=== PATIENT | female | born 1975 | race African-American/Black ===

== ENCOUNTER 2019-12-15 19:46 | Inpatient (IN) | payer OTHER ==
[~2019-12-15] VITALS: Ht 172.7 cm; Wt 113.4 kg
[2019-12-15 19:48] VITALS: BP 93/50
[2019-12-15] MEDS ORDERED: HYDROCHLOROTHIA25 M2 PO (20:05)
[2019-12-15] MEDS ORDERED: NIFEDIPINE ER30 M1 PO (20:06)
[2019-12-15] MEDS ORDERED: LISINOPRIL2.5 MG PO (20:06)
[2019-12-15] MEDS ORDERED: XARELTO20 MG PO (20:07)
[2019-12-15] MEDS ORDERED: METHOCARBAMOL500 M2 PO (20:08)
[2019-12-15 20:30] LABS: BASOPHILS 0.5 % (0.0-2.0); EOSINOPHILS 1.1 % (0.0-3.0); HEMATOCRIT 45.5 % (37.0-47.0); HEMOGLOBIN 15.6 gm/dL (12.0-15.0); LYMPHOCYTES 29.6 % (24.0-44.0); MCH 31.1 pg (26.0-34.0); MCHC 34.3 g/dL (28.0-37.0); MCV 90.7 fL (80.0-100.0); MONOCYTES 9.5 % (1.0-8.0); PLATELET COUNT 389 thou/uL (150-400); POLYS 59.3 % (36.0-66.0); RBC 5.01 mil/uL (4.20-5.00); WBC 6.8 thou/uL (4.0-11.0)
[2019-12-15 20:59] LABS: ANION GAP 13 mmol/L (7-16); BUN 17 mg/dL (7-18); CALCIUM 9.2 mg/dL (8.5-10.1); CHLORIDE 87 mmol/L (98-107); CO2 20 mmol/L (21-32); CREATININE 1.7 mg/dL (0.6-1.0); GLUCOSE 159 mg/dL (74-106); POTASSIUM 4.6 mmol/L (3.5-5.1); SGOT 40 U/L (15-37); SODIUM 120 mmol/L (136-145)
[2019-12-15 21:00] LABS: ALBUMIN 3.7 g/dL (3.4-5.0); SGPT 20 U/L (14-59); TROPONIN-I <0.06 ng/mL (<0.06)
[2019-12-15 21:55] VITALS: BP 120/74
[2019-12-15 21:56] VITALS: BP 101/56
--- NOTE | 2019-12-15 21:58 | NUR ---
CALL TO GIVE REPORT, CYNTHIA TORIBIO SAID SHE WILL CALL BACK, HAD TO TRANSFER A PT FIRST
[2019-12-15 22:32] VITALS: BP 118/57
--- NOTE | 2019-12-16 07:31 | EKG ---
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: MACARENA : 1975 Requested By: Eric Oneill Order Number: [id number] MD: Dave Yanes Measurements Intervals [place] Rate: 96 P: 50 MO: 145 QRS: 61 QRSD: 90 T: 3 QT: 393 QTc: 497 Interpretive Statements Sinus rhythm LAE, consider biatrial enlargement RSR' in V1 or V2, probably normal variant Minimal ST depression, inferior leads Borderline prolonged QT interval No previous ECG available for comparison Electronically Signed On 12-16-2019 7:31:44 TRAIN GATE ATTENDANT by Dave Yanes [email or web address] <ELECTRONICALLY SIGNED> By: Dave Yanes MD, FACC 12/16/19 0731 20 20 Dave Yanes MD, [facility] /EPI
[2019-12-16 07:45] VITALS: BP 150/84
--- NOTE | 2019-12-16 08:17 | NUR ---
admit pt admitted to room 455 via ed for syncope, hypoglycemia and hyponatremia. vss, ivf's infusing as ordered no c/o's until she began vomiting at shift change 4 mg zofran given ivp with little effect. pt voiding large amounts and having large amounts of liquid stool.
[2019-12-16 15:50] VITALS: BP 154/85
--- NOTE | 2019-12-16 19:29 | NUR ---
ASSUMED PT CARE THIS AM. PT A&OX4. PT STARTED VOMITING AT SHIFT CHANGE THIS AM. GIVEN ZOFRAN, VOMITED 7 TIMES AFTER. PT HAD NO DIARRHEA DURING MY SHIFT. PT REPORTED PAIN IN THE UPPER ABDOMEN, MANAGED WITH MEDICATION. PT REPORTED DECREASED NAUSEA AFTER VOMITING THIS AM, DECLINED NEEDING ANY NAUSEA MEDS. IV PATENT. PT UP TO BEDSIDE COMMODE. PT ON TELE. PT DID NOT HAVE MUCH OF AN APPETITE TODAY. ENDORSED TO NIGHT NURSE.
[2019-12-16 20:42] VITALS: BP 129/74
--- NOTE | 2019-12-17 04:13 | NUR ---
ASSUMED CARE OF PT AT 1900HRS. PT AOX4 AND LETS NEEDS BE KNOWN. PT IS UP AD JENAE. PT REPORTED ABDOMINAL PAIN AND WAS TREATED WITH PRN PAIN MEDS. NO N/V/D NOTED THIS SHIFT. PT PLACED NPO AT TN FOR EGD IN THE AM. PT RUNS ST ON TELE. PT WAS ABLE TO FET COMFORTABLE AND SLEEP PART OF THE SHIFT. VSS AND NO S/S OF ACUTE DISTRESS. WILL CONTINUE TO MONITOR.
[2019-12-17 06:02] LABS: HEMATOCRIT 41.8 % (37.0-47.0); HEMOGLOBIN 13.9 gm/dL (12.0-15.0); MCH 30.9 pg (26.0-34.0); MCHC 33.3 g/dL (28.0-37.0); RBC 4.49 mil/uL (4.20-5.00); RDW 13.6 % (10.5-14.5); WBC 7.4 thou/uL (4.0-11.0)
[2019-12-17 06:36] LABS: URINE BILIRUBIN NEGATIVE (Negative); URINE BLOOD 2+ (Negative); URINE COLOR YELLOW; URINE GLUCOSE-RANDOM* TRACE (Negative); URINE KETONES TRACE (Negative); URINE NITRITE-REFLEX NEGATIVE (Negative); URINE PROTEIN (DIPSTICK) NEGATIVE (Negative); URINE UROBILINOGEN 0.2 E.U./dl (0.2-1.0)
[2019-12-17 06:37] LABS: URINE LEUKOCYTES-REFLEX 3+ (Negative)
[2019-12-17 06:38] LABS: URINE CLARITY HAZY
[2019-12-17 06:49] LABS: AMP/METHAMP Negative (Negative); BARBITURATES Negative (Negative); BENZODIAZEPINES Negative (Negative); COCAINE Negative (Negative); METHADONE Negative (Negative); OPIATES Negative (Negative); PCP Negative (Negative)
[2019-12-17 07:24] LABS: CASTS None Seen /LPF (None Seen); SQUAMOUS >10 Many /LPF (0-3)
[2019-12-17 07:25] LABS: BACTERIA-REFLEX >30 Many /HPF (None Seen); CRYSTALS None Seen /LPF (None Seen); URINE RBC 0-2 Rare /HPF (0-2); WBC CLUMPS Occasional (None Seen)
[2019-12-17 07:32] VITALS: BP 153/64
[2019-12-17 08:56] LABS: ALBUMIN 3.3 g/dL (3.4-5.0); CALCIUM 8.8 mg/dL (8.5-10.1); CREATININE 1.1 mg/dL (0.6-1.0); POTASSIUM 3.3 mmol/L (3.5-5.1); TOTAL BILIRUBIN 1.2 mg/dL (0.2-1.0); TOTAL PROTEIN 6.8 g/dL (6.4-8.2)
--- NOTE | 2019-12-17 10:59 | NUR ---
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 THIS IS AN EXPECTION GRANTED OUTSIDE OF THE VISITOR POLICY AT THIS TIME.
--- NOTE | 2019-12-17 12:04 | NUR ---
PT ADMITTED RELATED TO SYNCOPE, HYPONATREMIA, HYPOGLYCEMIA. CM REVIEWED CHART AND SPOKE WITH CARE TEAM. CM CALLED AND SPOKE WITH PT OVER THE PHONE THIS DAY. PT APPEARED TO BE A&O X4. CM ROLE INTRODUCED. PT INDICATED SHE LIVES IN A HOUSE WITH HER SPOUSE AND KIDS. 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 PT INDICATED NO DME OR HH HX. PT INDICATED SHE PLANS TO RETURN HOME ONCE MEDICALLY STABLE. PT INDICATED SHE DIDN'T ANTICIPATE HAVING ANY NEEDS UPON DC. PT IS TO HAVE AN EGD THIS DAY. CM TO FOLLOW WITH DC PLANNING.
--- NOTE | 2019-12-17 15:17 | 2DMMODE ---
[facility] [place] [address] 2 D/M-MODE ECHOCARDIOGRAM Name: ANGELES ONEILL Room #: 455-P ADM IN M.R.#: [id number] Admission: 12/15/19 Attend Phys: Tiara Nick Discharge: Date of : 73 Report #: [id number] THIS REPORT FOR: cc: Carlos Velasquez Brady DO Lammoglia, Francisco J. MD ~ APPROVED REPORT Study performed: 12/17/2019 14:28:38 EXAM: Comprehensive 2D, Doppler, and color-flow Echocardiogram Patient Location: Bedside Room #: [facility] Status: routine BSA: 2.25 HR: 95 bpm BP: 153/64 mmHg Rhythm: NSR Other Information Study Quality: Adequate Technically limited study due to unable to position. Indications Dyspnea on exertion. 2D Dimensions RVDd: 27.15 mm IVSd: 12.71 (7-11mm) LVOT Diam: 21.70 (18-24mm) LVDd: 41.02 mm PWd: 9.18 (7-11mm) LVDs: 27.57 (25-40mm) Aortic Root: 36.71 mm Volumes Left Atrial Volume (Systole) Single Plane 4CH: 18.12 mL Single Plane 2CH: 40.71 mL LA ESV Index: 14.00 mL/m2 Aortic Valve AoV Peak Jose Elias.: 1.34 m/s AO Peak Gr.: 7.23 mmHg LVOT Max P.60 mmHg LVOT Max V: 1.18 m/s [facility] [address] [address] 2 D/M-MODE ECHOCARDIOGRAM Name: ANGELES ONEILL Room #: 455-P [facility] IN ..#: [id number] Admission: 12/15/19 Attend Phys: Tiara Francisco Discharge: Date of : 73 Report #: [id number] [id number] Vmax: 3.25 cm2 Mitral Valve E/A Ratio: 0.8 MV Decel. Time: 203.57 ms MV E Max Jose Elias.: 0.77 m/s MV A Jose Elias.: 0.99 m/s MV PHT: 59.04 ms IVRT: 55.36 ms Pulmonary Valve PV Peak Jose Elias.: 1.14 m/s PV Peak Gr.: 5.17 mmHg Pulmonary Vein P Vein S: 0.52 m/s P Vein A: 0.33 m/s P Vein D: 0.35 m/s P Vein A Dur.: 121.1 msec P Vein S/D Ratio: 1.49 Tricuspid Valve RAP Estimate: 5.00 mmHg Left Ventricle The left ventricle is normal size. Mild basal septal hypertrophy is present. Left ventricular systolic function is normal. LVEF is 60-65%. Mild diastolic dysfunction is present (impaired relaxation pattern). Right Ventricle The right ventricle is normal size. The right ventricular systolic function is normal. Atria The left atrium size is normal. The right atrium size is normal. Aortic Valve The aortic valve is normal in structure. No aortic regurgitation is present. There is no aortic valvular stenosis. Mitral Valve The mitral valve is normal in structure. There is no mitral valve regurgitation noted. No evidence of mitral valve stenosis. Tricuspid Valve The tricuspid valve is normal in structure. There is no tricuspid valve regurgitation noted. Unable to assess PA pressure. [facility] [address] [place] [address] 2 D/M-MODE ECHOCARDIOGRAM Name: ANGELES ONEILL Room #: 455-P [facility] IN ..#: [id number] Admission: 12/15/19 Attend Phys: Tiara Francisco Discharge: Date of : 73 Report #: [id number] Pulmonic Valve Pulmonic valve is not well visualized. Trace pulmonic regurgitation. Great Vessels The aortic root is normal in size. The ascending aorta is normal in size. IVC is normal in size and collapses >50% with inspiration. Pericardium There is no pericardial effusion. <Conclusion> The left ventricle is normal size. LVEF is 60-65%. The aortic valve is normal in structure. The mitral valve is normal in structure. The tricuspid valve is normal in structure. Pulmonic valve is not well visualized. Trace pulmonic regurgitation. There is no pericardial effusion. <ELECTRONICALLY SIGNED> By: Dandy Bettencourt MD 12/17/19 1516 15 15 Dandy Bettencourt MD /INF
--- NOTE | 2019-12-17 17:49 | NUR ---
ASSUMED PT CARE THIS AM. PT A&OX4. PT WENT DOWN FOR AN EGD TODAY. PT NPO THIS AM, COMPLAINED OF PAIN MANAGED WITH MEDS. WENT DOWN FOR EGD, VITALS TAKEN PER PROTOCOL FOLLOWING. PT HAD ELEVATED BP, MEDS GIVEN PER . PT REPORTED NAUSEA AFTER EGD, MEDS GIVEN AND RESPONDED WELL. PT IV PATENT, FLUIDS INFUSING. WHEN GIVING IV POTASSIUM, PT COMPLAINED OF BURNING SENSATION IN HAND. PT TOOK A SHOWER WITH HELP FROM . PT ON TELE WAS SINUS TACH. PT ON CLEAR LIQUID DIET NOW, TOLERATING WELL.
[2019-12-17 19:58] VITALS: BP 104/55
--- NOTE | 2019-12-18 02:28 | NUR ---
ASSUMED CARE OF PT AROUND 1900HRS. PT ATX4 AND LETS NEEDS BE KNOWN. FALL PRECATION IN PLACE FOR SAEFTY. PT DENIED NAUSEA OR SOA THIS SHIFT. PT REPORTED SOME PAIN AND WAS TREATED WITH PRN PAIN MEDS. PT RUNS SR ON TELE. PT WAS ABLE TO GET COMFORTABLE AND SLEEP PART OF THE SHIFT. VSS AND NO S/S OF ACUTE DISTRESS. WILL CONTINUE TO MONITOR.
[2019-12-18 07:49] LABS: ALBUMIN 2.9 g/dL (3.4-5.0); CALCIUM 8.2 mg/dL (8.5-10.1); CREATININE 0.8 mg/dL (0.6-1.0); PHOSPHORUS 1.8 mg/dL (2.5-4.9); POTASSIUM 3.1 mmol/L (3.5-5.1)
[2019-12-18 08:45] VITALS: BP 132/69
[2019-12-18 08:47] VITALS: BP 127/69
[2019-12-18 08:48] VITALS: BP 123/76
[2019-12-18] MEDS ORDERED: PROTONIX 20 MG20 MG PO (10:45)
--- NOTE | 2019-12-18 10:56 | NUR ---
CARE TEAM INDICATED THAT PT IS MEDICALLY STABLE TO DISCHARGE HOME THIS DAY. PT IS TO DC HOME TO SELF CARE. NO OTHER CM INTERVENTION INIDCATED. CASE CLOSED.
--- NOTE | 2019-12-18 11:06 | NUR ---
ASSUMED CARES AT 0700. PT AWAKE, ALERT AND ORIENTED*4. C/O EPIGASTRIC AND ABDOMINAL DISCOMFORT AND PAIN, PAIN MEDICATION ADMINISTERED NEEDED. PT DENIES N&V THIS SHIFT, REMAINS ON FULL LIQUID DIET AND TOLERATES WELL. ORTHOSTATIC BP TAKEN THIS AM WERE STABLE, PT DENIES DIZZINESS. POTASSIUM CORRECTED. PT UP WITH SBA AND TOLERATED WELL. PT TO DC THIS AFTERNOON, DC INSTRUCTIONS AND TEACHING TO BE PROVIDED BEFORE DC. Q1H VISUAL CHECKS. CALL LIGHT WITHIN REACH. FALL PRECAUTIONS IN PLACE.
[2019-12-18 11:13] VITALS: BP 132/69
[2019-12-19 16:59] LABS: GLYCOHEMOGLOBIN (HGB A1C) 8.8
--- NOTE | 2019-12-19 17:06 | PATH ---
[facility] [address] [place] [address] PATHOLOGY RPT PROCEDURE Name: ANGELES ONEILL Room #: 455-P DIS IN M.R.#: [id number] Admission: 12/15/19 Date of : 73 Discharge: 12/18/19 Report #: [id number] Path Case #: [id number] [facility] Accession Number: [id number] . 01 Material submitted: . stomach - ANTRUM BIOPSY R/O H. PYLORI . 01 Clinical history: . SYNCOPE, LOW NA, LOW GLUCOSE, GI BLEED, N/V, ESOPHAGITIS . 02 Diagnosis: Gastric mucosa, antrum, endoscopic biopsy: - Helicobacter pylori induced moderate active gastritis. - Negative for intestinal metaplasia, atrophy or dysplasia. - Moderate number of Helicobacter pylori organisms present on the properly controlled immunohistochemical stain. (IUV:phil; 12/19/2019) QMS 12/19/2019 1144 Local . 02 Electronically signed: . Gabriela Meng MD, Pathologist NPI- [id number] . 01 Gross description: . Received in formalin labeled "[place], [place], antrum BX" are two morales-brown soft tissue fragments measuring in aggregate 0.5 x 0.5 x 0.1 cm. The specimen is submitted entirely in A1. ([facility]; 12/18/2019) [facility] 12/18/2019 1608 Local . 02 Pathologist provided ICD-10: K29.70, B96.81 . 02 CPT . 156644, W76152 Specimen Comment: A courtesy copy of this report has been sent to [phone], [phone] Specimen Comment: [phone], Specimen Comment: Report sent to ,DR BLACK / DR RDZ Performed at: [address], [place] [id number] MD Conrado Florian MD Phone: [phone] Performed at: [address] [id number] MD Gabriela Meng MD Phone: [phone]
== END 2019-12-18 13:30 | disposition home or self-care (01) | DRG 377 ==
LOC: ER 19:46 → 4W 21:34 → EROBS 21:34 → 4W 22:31
PROVIDERS: Emergency Medicine; Nurse Practitioner Family; ADMIT Hospitalist; ATTEND Hospitalist
PROC: 0DB68ZX Excision of Stomach, Via Natural or Artificial Opening Endoscopic, Diagnostic (ICD-10-PCS; principal; 2019-12-17)
DX: K29.71 Gastritis, unspecified, with bleeding (principal); G93.41 Metabolic encephalopathy; N17.9 Acute kidney failure, unspecified; E87.1 Hypo-osmolality and hyponatremia; M62.82 Rhabdomyolysis; I10 Essential (primary) hypertension; K20.91 Esophagitis, unspecified with bleeding; K29.81 Duodenitis with bleeding; N18.9 Chronic kidney disease, unspecified; F17.210 Nicotine dependence, cigarettes, uncomplicated; E11.22 Type 2 diabetes mellitus with diabetic chronic kidney disease; E11.65 Type 2 diabetes mellitus with hyperglycemia; K21.9 Gastro-esophageal reflux disease without esophagitis; E86.0 Dehydration; K52.9 Noninfective gastroenteritis and colitis, unspecified; E87.6 Hypokalemia; K44.9 Diaphragmatic hernia without obstruction or gangrene; Z20.828 Contact with and (suspected) exposure to other viral communicable diseases; Z86.711 Personal history of pulmonary embolism; Z09 Encounter for follow-up examination after completed treatment for conditions other than malignant neoplasm; Z86.718 Personal history of other venous thrombosis and embolism; Z79.899 Other long term (current) drug therapy
CPT/HCPCS: 10045; 62110; 62900; 70005

== ENCOUNTER 2020-05-18 10:04 | Inpatient (IN) | payer OTHER ==
[~2020-05-18] VITALS: Ht 172.7 cm; Wt 105.7 kg
[~2020-05-18 10:04] MED LIST: HYDROCHLOROTHIA25 M2 PO; LISINOPRIL2.5 MG PO; METHOCARBAMOL500 M2 PO; NIFEDIPINE ER30 M1 PO; PROTONIX 20 MG20 MG PO; XARELTO20 MG PO
[2020-05-18 10:05] VITALS: BP 130/107
[2020-05-18 10:27] LABS: URINE BILIRUBIN NEGATIVE (Negative); URINE BLOOD TRACE (Negative); URINE CLARITY CLEAR; URINE COLOR YELLOW; URINE GLUCOSE-RANDOM* 2+ (Negative); URINE KETONES TRACE (Negative); URINE LEUKOCYTES-REFLEX NEGATIVE (Negative); URINE NITRITE-REFLEX NEGATIVE (Negative); URINE PROTEIN (DIPSTICK) NEGATIVE (Negative); URINE UROBILINOGEN 0.2 E.U./dl (0.2-1.0)
[2020-05-18 10:30] LABS: ABSOLUTE NEUTROPHILS 6.3 thou/uL (1.4-8.2); BASOPHILS 0.8 % (0.0-2.0); HEMATOCRIT 46.8 % (37.0-47.0); HEMOGLOBIN 16.1 gm/dL (12.0-15.0); LYMPHOCYTES 22.9 % (24.0-44.0); MCH 31.7 pg (26.0-34.0); MCHC 34.4 g/dL (28.0-37.0); MCV 92.1 fL (80.0-100.0); MONOCYTES 4.9 % (1.0-8.0); PLATELET COUNT 455 thou/uL (150-400); POLYS 70.4 % (36.0-66.0); RBC 5.08 mil/uL (4.20-5.00); RDW 14.1 % (10.5-14.5)
[2020-05-18 10:36] LABS: ANION GAP 17 mmol/L (7-16); BUN 8 mg/dL (7-18); CALCIUM 9.3 mg/dL (8.5-10.1); CHLORIDE 103 mmol/L (98-107); CO2 18 mmol/L (21-32); CREATININE 0.8 mg/dL (0.6-1.0); GLUCOSE 257 mg/dL (74-106); POTASSIUM 3.6 mmol/L (3.5-5.1); SODIUM 138 mmol/L (136-145)
[2020-05-18] MEDS ORDERED: VICTOZA0.6 MG/0.1 SUBQ (10:41)
[2020-05-18] MEDS ORDERED: ZINC30 MG PO (10:41)
[2020-05-18 10:45] LABS: ALBUMIN 4.2 g/dL (3.4-5.0); SGOT 15 U/L (15-37); SGPT 23 U/L (14-59); TOTAL BILIRUBIN 0.6 mg/dL (0.2-1.0); TOTAL PROTEIN 8.8 g/dL (6.4-8.2); TROPONIN-I <0.06 ng/mL (<0.06)
[2020-05-18 11:45] VITALS: BP 147/81
[2020-05-18 11:57] VITALS: BP 147/81
[2020-05-18 12:15] LABS: AMP/METHAMP Negative (Negative); BARBITURATES Negative (Negative); BENZODIAZEPINES Negative (Negative); COCAINE Negative (Negative); METHADONE Negative (Negative); OPIATES Negative (Negative); PCP Negative (Negative)
[2020-05-18 12:17] VITALS: BP 150/83
--- NOTE | 2020-05-18 12:43 | EKG ---
[place] [address] [place] [address] ELECTROCARDIOGRAM REPORT Name: ANGELES ONEILL Room #: 209-P ADM IN M.R.#: [id number] Admission: 05/18/20 Attend Phys: Tiara Nick Discharge: Date of : 73 Report #: [id number] [facility] ED Test Date: 2020-05-18 Test Time: 10:04:50 Pat Name: ANGELES ONEILL Department: Room: 209 Gender: F Program Strategist: RAJ : 1975 Requested By: Dave Hilton Order Number: [id number] MD: Iván Hardy Measurements Intervals [place] Rate: 127 P: OR: QRS: 64 QRSD: 84 T: -37 QT: 335 QTc: 488 Interpretive Statements Atrial fibrillation RSR' in V1 or V2, probably normal variant Borderline repolarization abnormality Borderline prolonged QT interval Compared to ECG 12/15/2019 20:21:47 Sinus rhythm no longer present Electronically Signed On 05-18-2020 12:42:55 CDT by Iván Hardy [email or web address] <ELECTRONICALLY SIGNED> By: Iván Hardy MD, [facility] 05/18/20 1242 1004 1004 Iván Hardy MD, [facility] /EPI
--- NOTE | 2020-05-18 15:58 | EKG ---
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: RAJ : 1975 Requested By: Dave Hilton Order Number: [id number] MD: Dave Yanes Measurements Intervals [place] Rate: 80 P: 48 CA: 164 QRS: 52 QRSD: 98 T: 18 QT: 400 QTc: 462 Interpretive Statements Sinus rhythm Probable left atrial enlargement Borderline T wave abnormalities Compared to ECG 05/18/2020 10:04:50 T-wave abnormality now present Atrial fibrillation no longer present Electronically Signed On 05-18-2020 15:58:43 CDT by Dave Yanes [email or web address] <ELECTRONICALLY SIGNED> By: Dave Yanes MD, [facility] 05/18/20 1558 1025 1025 Dave Yanes MD, [facility] /EPI
--- NOTE | 2020-05-18 16:00 | NUR ---
PT TRANSFERED TO CCU FROM THE ED AT APPROX 1410. PT RESTING COMFORTABLY, DOES NOT COMPLAIN OF ANY CHEST PAIN OR DYSPNEA. NEW PIV WAS STARTED BY IV ACCESS TEAM. PT AFEBRILE, ADEQUATE UOP, NO BM, TOLERATING DIET. AT BEDSIDE. PT AND HAVE BEEN UPDATED AND EDUCATED ON PT CONDTION AND POC. PT SLOWLY PROGRESSING TOWARDS POC. NO EMESIS SINCE BEING ON CCU.
[2020-05-18 20:05] VITALS: BP 167/70
[2020-05-19] VITALS (9 sets, daily range): BP systolic 147–193; BP diastolic 78–94
--- NOTE | 2020-05-19 05:02 | NUR ---
2119 SPOKE WITH SHOSHANA TACO MAKER PAST PATIENT STATED HAD NOT TAKEN HOME MEDS. XAROLTO STARTED. 2244 COMPLAINTS OF NAUSEA AND SEVERE ABDOMAINAL PAIN LIKE WHY SHE CAME TO ER. MOROPHINE 2MG IVP AND ZOFRAN IVP GIVEN. 2314 UP TO COMODE AND HAD SOME DIARRHEA, NAUSEA AND VOMMITTING PAST UP TO COMODE. COOL CLOTH GIVEN FOR FACE. STAYED WITH PATIENT FOR REASSURANCE. 0030 PAIN AND NAUSEA HAD SUBSIDED. NO PRESENT COMPLAINTS. RESTING QUIETLY WITH EYES CLOSED. 0420 BP 183/89. NOTIFIED TACO MAKER AND AM NIFEDIPINE GIVEN. WORKING ON GOALS AND PLAN OF CARE FOR NOC. NO PRESENT COMPLAINTS. JELLO GIVEN PER REQUEST. CONTINUE TO ASSES CLOSELY.
[2020-05-19 05:11] LABS: ABSOLUTE NEUTROPHILS 12.1 thou/uL (1.4-8.2); BASOPHILS 0.7 % (0.0-2.0); HEMATOCRIT 48.3 % (37.0-47.0); HEMOGLOBIN 16.2 gm/dL (12.0-15.0); LYMPHOCYTES 6.8 % (24.0-44.0); MCH 31.1 pg (26.0-34.0); MCHC 33.5 g/dL (28.0-37.0); MCV 92.9 fL (80.0-100.0); MONOCYTES 2.3 % (1.0-8.0); POLYS 90.2 % (36.0-66.0); WBC 13.4 thou/uL (4.0-11.0)
[2020-05-19 05:18] LABS: ALBUMIN 4.3 g/dL (3.4-5.0); CALCIUM 9.7 mg/dL (8.5-10.1); CREATININE 0.8 mg/dL (0.6-1.0); MAGNESIUM 1.6 mg/dL (1.8-2.4); POTASSIUM 3.5 mmol/L (3.5-5.1); TOTAL BILIRUBIN 0.8 mg/dL (0.2-1.0)
[2020-05-19 05:24] LABS: PLATELET COUNT 368 thou/uL (150-400)
--- NOTE | 2020-05-19 17:22 | NUR ---
RECEIVED PT'S CARE AROUND 0720; PT. ON BED; ALERT; SR ON THE MONITOR; DURING AM ASSESSMENT PT. AXO4; NO C/O PAIN; ST. NOT HAVING NAUSEA AT THE MOMENT; AM MEDICATIONS GIVEN; DURING AM VS NOTICED BP ON THE 180s; DR. RDZ NOTIFIED; NO NEW ORDERS; PT. EDUCATED ABOUT HAVING LIGHT BREAKFAST; ST. UNDERSTANDING; EDUCATED ABOUT CALLING BEFORE GETTING UP FROM BED; ST. UNDERSTANDING; NEEDS TO BE REMAINED; IMPULSIVE; INSULIN REPLACED; GI CONSULTED; CLOSE TO NOON PT. ST ON THE MONITOR; PT. C/O DIZZINES; C/O NAUSEA; SCHEDULED MEDICATION GIVEN; EDUCATED ABOUT CALLING BEFORE GETTING UP FROM BED DUE TO DIZZINNESS; NEEDS REINFORCEMENT THROUGH THE AFTERNOON; REASSESSMENT PT. ST. DECREASE NAUSEA; HAD TWO EMESIS INCIDENTS; MANJIT LA GI DEVELOPMENT SCIENTIST DIET CHANGED TO CLEAR LIQUID; ORTHOSTATIC BP IN THE SYSTEM; DR. RDZ NOTIFIED; NO NEW ORDERS; DURING THE AFTERNOON PT'S BP ON THE 180s; DR. RDZ NOTIFIED; ORDERS RECEIVED; BG THROUGH THE DAY ON THE 200s; DR. RDZ NOTIFIED; ORDERS RECEIVED; PT. NOTIFIED; ST. UNDERSTANDING; ASSESSMENT CHARGED; FOLLOWING POC; WILL PASS ON REPORT;
--- NOTE | 2020-05-20 01:12 | NUR ---
COMPLAINTS OF SEVERE ABDOMANAL PAIN, NAUSEA AND NOT SLEEPING. MEDICATIONS GIVEN FOR COMFORT. NO VOMMITING AT THIS TIME.
[2020-05-20 05:22] VITALS: BP 163/94
[2020-05-20 05:35] LABS: HEMATOCRIT 48.7 % (37.0-47.0); HEMOGLOBIN 16.4 gm/dL (12.0-15.0); MCH 30.8 pg (26.0-34.0); MCHC 33.6 g/dL (28.0-37.0); MCV 91.6 fL (80.0-100.0); RBC 5.32 mil/uL (4.20-5.00); RDW 14.1 % (10.5-14.5); WBC 12.9 thou/uL (4.0-11.0)
[2020-05-20 06:12] LABS: ALBUMIN 3.8 g/dL (3.4-5.0); CALCIUM 9.3 mg/dL (8.5-10.1); CREATININE 0.8 mg/dL (0.6-1.0); MAGNESIUM 1.7 mg/dL (1.8-2.4); TOTAL BILIRUBIN 1.1 mg/dL (0.2-1.0); TOTAL PROTEIN 8.4 g/dL (6.4-8.2)
[2020-05-20 08:00] VITALS: BP 162/98
[2020-05-20 13:25] VITALS: BP 108/71
--- NOTE | 2020-05-20 13:27 | NUR ---
ASSUMED CARE SHIFT CHANGE. ASSESSMENT CHARTED.MEDS GIVEN. PT C/O PAIN PHYSICIAN NOTIFIED ORDERS RECEIVED. SPOUSE AT BEDSIDE. C/O NAUSEA TREATED WITH MEDS PER APR. PT UP WITH ASSIST TOLERATING FAIR. TX ORDERS MEDSURG. REPORT GIVEN TO SANTIAGO MARIE. PT TRANSFERRED TO W WITH ALL BELONGINGS
--- NOTE | 2020-05-20 14:03 | NUR ---
RECIEVED PATIENT FROM 2N AND REPORT FROM CYNTHIA YANG. UP TO BATHROOM WITH ASSISTING. STEADY GAIT. NO NAUSEA OR ABDOMINAL PAIN. STATES CAPSACIAN CREAM CAUSES A LITTLE BURNING SENSATION TO ADBOMEN BUT IS EFFECTIVE. NO OTHER COMPLAINTS OR CONCERNS AT THIS TIME
[2020-05-20 15:15] VITALS: BP 89/58
[2020-05-20 19:23] VITALS: BP 96/59
--- NOTE | 2020-05-21 06:40 | NUR ---
Pt. rested quietly at intervals during the night when checked on during frequent rounds. She offers no c/o pain or nausea.
[2020-05-21 07:24] VITALS: BP 95/51
[2020-05-21] MEDS ORDERED: AF CAPSICUM 0.060 GM TOP (09:26)
[2020-05-21] MEDS ORDERED: TRAMADOL 50 MG50 MG PO (09:26)
[2020-05-21] MEDS ORDERED: ONDANSETRON HCL4 M2 PO (09:27)
[2020-05-21 10:02] VITALS: BP 95/51
--- NOTE | 2020-05-21 12:18 | NUR ---
Received awake on bed. Due medications given as prescribed, able to swallow meds w/o difficulty. On room air. Vital signs stable. On MS, not on telemetry; no complains and signs of chest pain, crushing sensation and heaviness; recent diagnosis of Afib. On soft diet- tolerating well; no nausea, no vomiting and no abdominal pain noted. On blood sugar monitoring, taken and recorded accordingly; with sliding scale insulin ordered- given as prescribed. Continent of bowel and bladder, able to go to the toilet with standby assist. Falls bundle in place- recent syncope. With SL at R AC- intact. To continue monitoring patient. Patient seen and examined by Dr Park price am- discharge orders made- DELIA Lenz updated. Discharge instructions, follow up schedule given and instructed- pt acknowledged understanding. Discharge forms signed. IV discontinued. No telemetry noted. Pt fetched by her relative; brought out of the unit via wheelchair with her personal belongings. Pt discharged.
== END 2020-05-21 11:18 | disposition home or self-care (01) | DRG 73 ==
LOC: ER 10:04 → 2N 11:50 → EROBS 11:50 → 2N 12:17 → 4W 05-20 13:16
PROVIDERS: Emergency Medicine; Nurse Practitioner; ADMIT Hospitalist; ATTEND Hospitalist
DX: E11.43 Type 2 diabetes mellitus with diabetic autonomic (poly)neuropathy (principal); E43 Unspecified severe protein-calorie malnutrition; R65.10 Systemic inflammatory response syndrome (SIRS) of non-infectious origin without acute organ dysfunction; I10 Essential (primary) hypertension; I48.91 Unspecified atrial fibrillation; E78.5 Hyperlipidemia, unspecified; F12.90 Cannabis use, unspecified, uncomplicated; K20.90 Esophagitis, unspecified without bleeding; E66.9 Obesity, unspecified; I48.0 Paroxysmal atrial fibrillation; E11.65 Type 2 diabetes mellitus with hyperglycemia; K76.0 Fatty (change of) liver, not elsewhere classified; R59.9 Enlarged lymph nodes, unspecified; K31.84 Gastroparesis; K52.9 Noninfective gastroenteritis and colitis, unspecified; Z86.718 Personal history of other venous thrombosis and embolism; Z86.711 Personal history of pulmonary embolism; Z68.35 Body mass index [BMI] 35.0-35.9, adult
CPT/HCPCS: 10047; 10081

== ENCOUNTER 2020-08-13 11:22 | Emergency (ER) | payer OTHER ==
[~2020-08-13] VITALS: Ht 170.2 cm; Wt 104.3 kg
[~2020-08-13 11:22] MED LIST changes: +AF CAPSICUM 0.060 GM TOP; +ONDANSETRON HCL4 M2 PO; +TRAMADOL 50 MG50 MG PO; +VICTOZA0.6 MG/0.1 SUBQ; +ZINC30 MG PO
[2020-08-13] MEDS ORDERED: LISINOPRIL10 MG PO (11:34)
[2020-08-13 11:55] LABS: HEMOGLOBIN 13.4 gm/dL (12.0-15.0); MCH 30.8 pg (26.0-34.0); MCHC 33.3 g/dL (28.0-37.0); MCV 92.4 fL (80.0-100.0); RBC 4.33 mil/uL (4.20-5.00); RDW 13.8 % (10.5-14.5)
[2020-08-13 12:08] LABS: ANION GAP 11 mmol/L (7-16); BUN 4 mg/dL (7-18); CALCIUM 8.8 mg/dL (8.5-10.1); CHLORIDE 106 mmol/L (98-107); CO2 24 mmol/L (21-32); CREATININE 0.8 mg/dL (0.6-1.0); GLUCOSE 189 mg/dL (74-106); POTASSIUM 3.8 mmol/L (3.5-5.1); SODIUM 141 mmol/L (136-145)
[2020-08-13 12:17] LABS: URINE BILIRUBIN NEGATIVE (Negative); URINE BLOOD NEGATIVE (Negative); URINE CLARITY CLEAR; URINE COLOR YELLOW; URINE GLUCOSE-RANDOM* NEGATIVE (Negative); URINE KETONES NEGATIVE (Negative); URINE LEUKOCYTES-REFLEX NEGATIVE (Negative); URINE NITRITE-REFLEX NEGATIVE (Negative); URINE PROTEIN (DIPSTICK) NEGATIVE (Negative); URINE SPECIFIC GRAVITY 1.015 (1.005-1.035); URINE UROBILINOGEN 0.2 E.U./dl (0.2-1.0)
[2020-08-13 12:22] LABS: ALBUMIN 3.3 g/dL (3.4-5.0); SGOT 16 U/L (15-37); SGPT 20 U/L (14-59); TOTAL BILIRUBIN 0.7 mg/dL (0.2-1.0); TOTAL PROTEIN 7.2 g/dL (6.4-8.2); TROPONIN-I <0.06 ng/mL (<0.06)
[2020-08-13] MEDS ORDERED: NIFEDIPINE ER30 M1 PO (12:58)
[2020-08-13] MEDS ORDERED: LISINOPRIL2.5 MG PO (12:58)
[2020-08-13 13:55] VITALS: BP 120/72
--- NOTE | 2020-08-13 17:19 | EKG ---
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1975 Requested By: Shaina Card Order Number: [id number] MD: Dave Yanes Measurements Intervals [place] Rate: 80 P: 48 MN: 170 QRS: 50 QRSD: 94 T: 8 QT: 404 QTc: 466 Interpretive Statements Sinus rhythm RSR' in V1 or V2, right VCD or RVH Compared to ECG 05/18/2020 10:25:02 Right ventricular hypertrophy now present RSR' in V1 or V2 now present T-wave abnormality no longer present Electronically Signed On 08-13-2020 17:19:40 CDT by Dave Yanes [email or web address] <ELECTRONICALLY SIGNED> By: Dave Yanes MD, [facility] 08/13/20 1719 1133 1133 Dave Yanes MD, [facility] /EPI
--- NOTE | 2020-08-13 17:20 | EKG ---
[place] [address] [place] [address] ELECTROCARDIOGRAM REPORT Name: ANGELES ONEILL Room #: [facility]#: [id number] Admission: 08/13/20 Attend Phys: Discharge: 08/13/20 Date of : 73 Report #: [id number] [facility] ED Test Date: 2020-08-13 Test Time: 12:58:49 Pat Name: ANGELES ONEILL Department: Room: Gender: F Pay Clerk: USHA : 1975 Requested By: Shaina Card Order Number: [id number] MD: Dave Yanes Measurements Intervals [place] Rate: 73 P: 40 MO: 177 QRS: 44 QRSD: 105 T: 26 QT: 417 QTc: 460 Interpretive Statements Sinus rhythm RSR' in V1 or V2, right VCD or RVH Compared to ECG 08/13/2020 11:33:33 No significant changes Electronically Signed On 08-13-2020 17:19:53 CDT by Dave Yanes [email or web address] <ELECTRONICALLY SIGNED> By: Dave Yanes MD, [facility] 08/13/20 1719 D: [id number] Dave Yanes MD, [facility] /EPI
== END 2020-08-13 14:05 | disposition home or self-care (01) ==
LOC: ER 11:22
PROVIDERS: Nurse Practitioner Family
DX: I10 Essential (primary) hypertension (principal); R55 Syncope and collapse; E11.9 Type 2 diabetes mellitus without complications; Z86.711 Personal history of pulmonary embolism; R11.0 Nausea

== ENCOUNTER 2020-10-06 01:58 | Inpatient (IN) | payer BC, OTHER ==
[~2020-10-06] VITALS: Ht 170.2 cm; Wt 106.6 kg
--- NOTE | ~2020-10-06 | EMS ---
[address] [address] EMS Patient Care Report Name: ANGELES ONEILL Room #: 447-P ADM IN M.R.#: [id number] Admission: 10/06/20 Attend Phys: King Gotti MD Discharge: Date of : 73 Report #: [id number] THIS REPORT FOR: //name// Report Transmitted: 10/08/2020 10:50 EMS Care Summary [place], [place]/[facility] Incident [id number] @ 10/06/2020 01:24 Incident Location [address] [place] [address] Patient ANGELES ONEILL Female, 44 Years 1975 Patient Address [address] [place] [address] Patient History Diabetes,Hypertension (HTN), Patient Allergies No known allergies, Patient Medications Xarelto, Lisinopril, Victoza, Nifedipine, Chief Complaint Nausea and weakness Disposition Transported No Lights/[place] Dispatch Reason Diabetic Problem Transported To [facility] Narrative M42 arrived on scene to find the patient sitting upright on her bed. Patient said for the past 2-3 days she had been feeling sick to her stomach and had been throwing up. Patient said she had been very weakness as well. Patient [address] [address] EMS Patient Care Report Name: ANGELES ONEILL Room #: 447-P ADM IN Reginald#: [id number] Admission: 10/06/20 Attend Phys: King Gotti MD Discharge: Date of : 73 Report #: [id number] denied cough, shortness of breath, fever, or chest pain. Patient was placed on the cot and seat belts were used to secure the patient. En route to the hospital no changes in the patient condition occurred. M42 arrived on scene of the hospital and patient care was transferred to the RN. Initial Vitals @01:39P: 107,CO: 2,SpO2: 77, @01:45P: 106,R: 16,BP: 108/55,Pain: 0/10,GCS: 15,CO: 2,SpO2: 97,Revised Trauma: 12, @01:36P: 125,R: 16,BP: 129/86,Pain: 0/10,GCS: 15,Glucose: 300,SpO2: 98,Revised Trauma: 12, Assessments @01:32MENTAL:No Abnormalities,SKIN:No Abnormalities,HEENT:Head/Face: No Abnormalities,Eyes: No Abnormalities,Neck/Airway: No Abnormalities,LUNG SOUNDS:General: Nausea,ABDOMEN:General: Nausea,PELVIS//GI:No Abnormalities,EXTREMITIES:Left Arm: No Abnormalities,Right Arm: No Abnormalities,Left Leg: No Abnormalities,Right Leg: No Abnormalities,PULSE:NEURO:No Abnormalities,@01:42MENTAL:No Abnormalities,SKIN:No Abnormalities,HEENT:Head/Face: No Abnormalities,Eyes: No Abnormalities,Neck/Airway: No Abnormalities,LUNG SOUNDS:General: Nausea,ABDOMEN:General: Nausea,PELVIS//GI:No Abnormalities,EXTREMITIES:Left Arm: No Abnormalities,Right Arm: No Abnormalities,Left Leg: No Abnormalities,Right Leg: No Abnormalities,PULSE:NEURO:No Abnormalities, Impression Nausea Procedures @01:32ALS AssessmentResponse: UnchangedSucceeded Timeline 01:22,Call Received 01:22,Dispatch Notified 01:24,Dispatched 01:25,En Route 01:31,On Scene 01:32,At Patient 01:32,ALS Assessment,Response: UnchangedSucceeded, 01:36,BP: 129/86 M,PULSE: 125,RR: 16 R,SPO2: 98 Ox,ETCO2: ,B,PAIN: 0,GCS: 15, 01:39,BP: / M,PULSE: 107,RR: R,SPO2: 77 Ox,ETCO2: ,BG: ,PAIN: ,GCS: , 01:40,Depart Scene 01:45,BP: 108/55 M,PULSE: 106,RR: 16 R,SPO2: 97 Ox,ETCO2: ,BG: ,PAIN: 0,GCS: 15, 02:11,At Destination [address] [address] EMS Patient Care Report Name: NINOANGELES Room #: 447-P ADM IN M.R.#: [id number] Admission: 10/06/20 Attend Phys: King Gotti MD Discharge: Date of : 73 Report #: [id number] 02:12,Call Closed Disclaimer [email or web address] Copyright 2020 [employer] This EMS Care Summary contains data elements from the applicable legal record (which may be displayed differently). It is designed to provide pertinent information for the following purposes: continuity of care, clinical quality, and state data reporting. The complete legal record is available to ED staff and administrators of the receiving hospital in [employer]'s Patient Tracker. All data is provided "as is."
[~2020-10-06 01:58] MED LIST changes: +LISINOPRIL10 MG PO
[2020-10-06 02:06] VITALS: BP 150/96
[2020-10-06 03:23] LABS: ABSOLUTE NEUTROPHILS 11.3 thou/uL (1.4-8.2); BASOPHILS 0.9 % (0.0-2.0); EOSINOPHILS 0.1 % (0.0-3.0); HEMATOCRIT 44.8 % (37.0-47.0); HEMOGLOBIN 15.8 gm/dL (12.0-15.0); LYMPHOCYTES 13.9 % (24.0-44.0); MCH 32.1 pg (26.0-34.0); MCHC 35.2 g/dL (28.0-37.0); MCV 91.1 fL (80.0-100.0); MONOCYTES 5.1 % (1.0-8.0); PLATELET COUNT 435 thou/uL (150-400); RBC 4.91 mil/uL (4.20-5.00); RDW 13.6 % (10.5-14.5); WBC 14.1 thou/uL (4.0-11.0)
[2020-10-06 03:32] LABS: CALCIUM 9.5 mg/dL (8.5-10.1); CREATININE 0.8 mg/dL (0.6-1.0); POTASSIUM 4.3 mmol/L (3.5-5.1)
[2020-10-06 03:39] LABS: APTT 40.4 Seconds (24.5-32.8); INR 1.14; PROTIME 12.4 Seconds (10.5-12.1)
[2020-10-06 03:43] LABS: ALBUMIN 3.9 g/dL (3.4-5.0); TOTAL BILIRUBIN 1.2 mg/dL (0.2-1.0); TOTAL PROTEIN 8.7 g/dL (6.4-8.2)
[2020-10-06 03:53] LABS: URINE BILIRUBIN NEGATIVE (Negative); URINE BLOOD 2+ (Negative); URINE CLARITY CLEAR; URINE COLOR YELLOW; URINE GLUCOSE-RANDOM* 3+ (Negative); URINE KETONES 1+ (Negative); URINE LEUKOCYTES-REFLEX NEGATIVE (Negative); URINE NITRITE-REFLEX NEGATIVE (Negative); URINE PROTEIN (DIPSTICK) 3+ (Negative); URINE SPECIFIC GRAVITY 1.025 (1.005-1.035); URINE UROBILINOGEN 0.2 E.U./dl (0.2-1.0)
[2020-10-06 04:41] LABS: BACTERIA-REFLEX 1-9 Few /HPF (None Seen); CELLULAR CASTS 0-3 Few /LPF (None Seen); CRYSTALS None Seen /LPF (None Seen); HYALINE CASTS 0-3 Few /LPF (None Seen); MUCUS 4-6 Moderate strn/LPF (None Seen); SQUAMOUS 0-3 Few /LPF (0-3); URINE RBC 3-10 Few /HPF (NONE SEEN); URINE WBC-REFLEX 0-5 Rare /HPF (0-5)
--- NOTE | 2020-10-06 07:28 | EKG ---
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 : 1975 Requested By: Geremias Steven Order Number: [id number] MD: Dave Yanes Measurements Intervals [place] Rate: 101 P: 49 GA: 143 QRS: 47 QRSD: 104 T: 1 QT: 343 QTc: 445 Interpretive Statements Sinus tachycardia Abnormal R-wave progression, early transition Baseline wander in lead(s) II,III,aVF Compared to ECG 08/13/2020 12:58:49 Sinus rhythm no longer present Right ventricular hypertrophy no longer present Electronically Signed On 10-06-2020 7:27:52 CDT by Dave Yanes [email or web address] <ELECTRONICALLY SIGNED> By: Dave Yanes MD, [facility] 10/06/20 0727 1 1 Dave Yanes MD, [facility] /EPI
[2020-10-06 10:27] VITALS: BP 186/100
--- NOTE | 2020-10-06 11:37 | NUR ---
ASSUMED PT CARE AT 1055 FROM ED. PT IS ALERT & ORIENTED X4. PT HAS IV SITE ON L HAND SALINE LOCKED. PT IS ACCUCHECK ACHS AND ON CLEAR LIQUID DIET. NO C/O OF PAIN, NAUSEA AND VOMITING RIGHT NOW. PT IS ON ROOM AIR. WILL CONTINUE TO MONITOR PT. FOLLOW POC.
[2020-10-06 16:26] VITALS: BP 150/97
[2020-10-06 18:58] LABS: AMP/METHAMP Negative (Negative); BARBITURATES Negative (Negative); BENZODIAZEPINES Negative (Negative); COCAINE Negative (Negative); METHADONE Negative (Negative); OPIATES Negative (Negative); PCP Negative (Negative)
[2020-10-06 20:33] VITALS: BP 159/96
[2020-10-07 01:06] LABS: GLYCOHEMOGLOBIN (HGB A1C) 9.2 % (4.8-5.6)
[2020-10-07 06:15] LABS: HEMOGLOBIN 15.1 gm/dL (12.0-15.0); MCH 31.5 pg (26.0-34.0); MCHC 34.2 g/dL (28.0-37.0); MCV 91.9 fL (80.0-100.0); RBC 4.79 mil/uL (4.20-5.00); RDW 13.6 % (10.5-14.5); WBC 10.6 thou/uL (4.0-11.0)
[2020-10-07 06:26] LABS: CALCIUM 8.3 mg/dL (8.5-10.1); CREATININE 0.7 mg/dL (0.6-1.0); POTASSIUM 3.4 mmol/L (3.5-5.1)
[2020-10-07 08:09] VITALS: BP 149/110
--- NOTE | 2020-10-07 12:53 | NUR ---
ORDERS RECEIVED FOR PT EVAL AND TREAT. Pt ADMITTED W/ HYPONATREMIA AND ABD PAIN W/ N/V, COLITIS. Pt ON COMMODE UPON PT ARRIVAL. STOOD AND TOOK STEPS BACK TO BED INDEP. RN REPORTED Pt HAS BEEN UP AD JENAE. Pt DECLINING PT NEEDS AT THIS TIME STATING HER ISSUE IS JUST HER STOMACH/ABDOMEN. ACUTE PT TO SIGN OFF.
--- NOTE | 2020-10-07 13:14 | NUR ---
ASSUMED PT CARE THIS AM. PT IS ALERT & ORIENTED X4. PT HAS IV SITE ON L HAND RUNNING NS @126ML/HR. ADVANCE DIET TO FULL LIQUID PER GI. NO C/O OF NAUSEA AND VOMITING. PT C/O OF CONSTIPATION AND GIVEN MIRALAX AND BISACODYL PER PT REQUEST. PT IS UP AD JENAE. WILL CONTINUE TO MONITOR PT. FOLLOW POC.
--- NOTE | 2020-10-07 15:10 | NUR ---
ASSESSMENT: CM REVIEWED CHART AND SPOKE WITH PATIENT AT THE BEDSIDE. PT IS ALERT AND ORIENTED X4. PT LIVES IN A HOUSE WITH HER AND CHILDREN. PT WAS ADMITTED WITH LIKELY COLITIS AND ON IV ANBX. PT REPORTS SHE IS FULLY INDEPENDENT WITH ADLS AND AMBULATION. PT REPORTS NO HX OF HH OR SNF. PT REPORTS HAVING A PCP. CM DISCUSSED ROLE. PT DOES NOT ANTICIPATE HAVING ANY NEEDS FROM CM PRIOR TO DISCHARGE.
[2020-10-07 16:42] VITALS: BP 140/86
[2020-10-07 19:18] VITALS: BP 154/91
--- NOTE | 2020-10-08 02:49 | NUR ---
patient aox4 makes needs known. patient is up at alice. patient tolerated full liquids.patient denied pain or discomfort. no nausea or vomit this shift. patient in bed asleep at this time breathing regular and unlaboured.
[2020-10-08 07:36] VITALS: BP 156/106
--- NOTE | 2020-10-08 10:30 | NUR ---
ASSUMED PT CARE THIS AM. PT IS ALERT & ORIENTED X4. PT HAS IV SITE ON R FA RUNNING NS @126ML/HR. PT IS UP AD JENAE. PT IS ACCUCHECK ACHS. NEEDED STOOL SAMPLE AND STILL AWAITING FOR BM. PT IS ON ROOM AIR. NO C/O OF PAIN, NAUSEA AND VOMITING THIS AM. PT ON THE CHAIR WATCHING TV. WILL CONTINUE TO MONITOR PT. FOLLOW POC.
--- NOTE | 2020-10-08 12:13 | NUR ---
on-going assessment: CM REVIEWED CHART. PT IS UP AD JENAE IN HER ROOM. PT IS CURRENTLY ON FULL LIQUID DIET. PT SLOWLY PROGRESSING TOWARDS DISCHARGE GOALS. POSSIBLE DISCHARGE HOME THIS WEEKEND. PT SHOULD HAVE NO NEEDS FROM CASE MANAGEMENT.
[2020-10-08 16:16] VITALS: BP 149/86
[2020-10-08] MEDS ORDERED: ZOFRAN ODT4 MG DISSOLVE (17:50)
[2020-10-08] MEDS ORDERED: PROTONIX 20 MG20 M1 PO (17:50)
[2020-10-08] MEDS ORDERED: ACETAMINOPHEN325 M1 PO (17:50)
[2020-10-08] MEDS ORDERED: FLAGYL500 M1 PO (17:50)
[2020-10-08 17:59] VITALS: BP 156/106
== END 2020-10-08 18:34 | disposition home or self-care (01) | DRG 391 ==
LOC: ER 01:58 → 4S 04:33 → EROBS 04:33 → 4S 10:42
PROVIDERS: Emergency Medicine; Nurse Practitioner Family; ADMIT Internal Medicine; ATTEND Internal Medicine
DX: K52.9 Noninfective gastroenteritis and colitis, unspecified (principal); R65.11 Systemic inflammatory response syndrome (SIRS) of non-infectious origin with acute organ dysfunction; E87.1 Hypo-osmolality and hyponatremia; E44.0 Moderate protein-calorie malnutrition; K31.84 Gastroparesis; I10 Essential (primary) hypertension; F12.90 Cannabis use, unspecified, uncomplicated; K76.0 Fatty (change of) liver, not elsewhere classified; K21.00 Gastro-esophageal reflux disease with esophagitis, without bleeding; E66.9 Obesity, unspecified; K59.00 Constipation, unspecified; E11.43 Type 2 diabetes mellitus with diabetic autonomic (poly)neuropathy; R11.15 Cyclical vomiting syndrome unrelated to migraine; I48.0 Paroxysmal atrial fibrillation; Z20.822 Contact with and (suspected) exposure to COVID-19; Z79.899 Other long term (current) drug therapy; Z79.01 Long term (current) use of anticoagulants; Z68.36 Body mass index [BMI] 36.0-36.9, adult; Z86.711 Personal history of pulmonary embolism; Z91.19 Patient's noncompliance with other medical treatment and regimen
CPT/HCPCS: 10195

== ENCOUNTER 2020-10-13 15:07 | Inpatient (IN) | payer BC, OTHER ==
[~2020-10-13] VITALS: Ht 172.7 cm; Wt 103.0 kg
[~2020-10-13 15:07] MED LIST changes: +ACETAMINOPHEN325 M1 PO; +FLAGYL500 M1 PO; +PROTONIX 20 MG20 M1 PO; +ZOFRAN ODT4 MG DISSOLVE
[2020-10-13 16:57] LABS: BASOPHILS 0.3 % (0.0-2.0); EOSINOPHILS 0.1 % (0.0-3.0); HEMATOCRIT 43.7 % (37.0-47.0); HEMOGLOBIN 14.6 gm/dL (12.0-15.0); LYMPHOCYTES 9.6 % (24.0-44.0); MCH 31.4 pg (26.0-34.0); MCHC 33.4 g/dL (28.0-37.0); MONOCYTES 3.5 % (1.0-8.0); PLATELET COUNT 448 thou/uL (150-400); POLYS 86.5 % (36.0-66.0); RBC 4.65 mil/uL (4.20-5.00); RDW 13.7 % (10.5-14.5); WBC 10.4 thou/uL (4.0-11.0)
[2020-10-13 17:34] LABS: CALCIUM 9.8 mg/dL (8.5-10.1)
[2020-10-13 17:40] LABS: ALBUMIN 4.1 g/dL (3.4-5.0); TOTAL BILIRUBIN 0.6 mg/dL (0.2-1.0); TOTAL PROTEIN 8.5 g/dL (6.4-8.2)
[2020-10-13 17:43] LABS: POTASSIUM 3.9 mmol/L (3.5-5.1)
[2020-10-13 18:05] LABS: URINE BILIRUBIN NEGATIVE (Negative); URINE BLOOD TRACE (Negative); URINE CLARITY CLEAR; URINE COLOR YELLOW; URINE GLUCOSE-RANDOM* 3+ (Negative); URINE KETONES 1+ (Negative); URINE LEUKOCYTES-REFLEX NEGATIVE (Negative); URINE NITRITE-REFLEX NEGATIVE (Negative); URINE PROTEIN (DIPSTICK) NEGATIVE (Negative); URINE SPECIFIC GRAVITY 1.015 (1.005-1.035); URINE UROBILINOGEN 0.2 E.U./dl (0.2-1.0)
--- NOTE | 2020-10-13 18:05 | NUR ---
DR. SELF BEDSIDE FOR EVALUATION. PT. TO BE ADMITTED.
--- NOTE | 2020-10-13 18:39 | NUR ---
IV GAS TRANSFER OPERATOR PAULA HERE TO REINSERT ANOTHER IV. PT. IV PLACED BY IV ACCESS EARLIER DURING ER VISIT BECAME DISLODGED AND NO LONGER WAS ABLE TO BE USED FOR IV THERAPY. PT. NOW WITH IV TO RIGHT UE, PATRICK 2O, 2.5 INCH NEEDLE.
[2020-10-13 19:21] LABS: AMP/METHAMP Negative (Negative); BARBITURATES Negative (Negative); BENZODIAZEPINES Negative (Negative); COCAINE Negative (Negative); METHADONE Negative (Negative); OPIATES Negative (Negative); PCP Negative (Negative)
[2020-10-13 21:00] VITALS: BP 168/75
--- NOTE | 2020-10-13 21:07 | NUR ---
PT HAS UNDOCUMENTED MEDS ON THE EMAR, PER REPORT MEDS WERE GIVEN BY DAY SHIFT. PT DOES NOT REMEMBER IF MEDS WERE GIVEN. PT SAID THAT THE DAY NURSE DID GIVE THE MEDS. DUE TO THE NATURE OF THE MEDICATIONS I DID NOT ADMINISTER UNDOCUMENTED MEDS.
[2020-10-13 22:00] VITALS: BP 154/86
--- NOTE | 2020-10-14 03:37 | NUR ---
TODAY THIS PT WAS A NEW ADMISSION FROM THE ED WITH N&V. WHEN SHE GOT TO THE FLOOR SHE DID HAVE AN OCCURENCE OF N&V AND MEDICATION WAS GIVEN TO TAKE CARE OF IT. SHE HAS BEEN TOLERATING HER FLUIDS WELL. SHE HAS HAD STABLE VS OTHERWISE. SHE HAS BEEN ASLEEP FOR MOST OF THE NIGHT WHILE AWAITING FOR THE NEXT PLAN.
[2020-10-14 08:50] VITALS: BP 213/124
[2020-10-14 08:53] VITALS: BP 190/114
--- NOTE | 2020-10-14 08:58 | NUR ---
ASSESSMENT: CM REVIEWED CHART AND SPOKE WITH PATIENT AT THE BEDSIDE. PT IS ALERT AND ORIENTED X4. PT WAS ADMITTED DUE TO NAUSEA AND VOMITTING. PT WAS RECENTLY HERE AT [facility] FOR SIMILAR ISSUES AND DISCHARGED END OF SEPTEMBER. PT REPORTS THAT SHE STILL LIVES WITH HER AND FAMILY AT HOME. PT IS FULLY INDEPENDENT WITH ADLS AND AMBULATION. PT REPORTS SHE HAS NO HX OF HH OR SNF. CM DISUCSSED ROLE AND PT DOES NOT ANTICIPATE HAVING ANY NEEDS FROM CM. PT IS ON IV FLUIDS AND CURRENTLY NPO. CM WILL CONTINUE TO FOLLOW TO ASSIST NEEDED.
--- NOTE | 2020-10-14 11:06 | NUR ---
A/O X 4. Room air. AD JENAE. at bedside and very helpful in her care. Left hand IV with NS infusing @ 100 mls/hr. Headache 5/10 tylenol given. BP 190/114, Dr. Benavides called and made aware and he resumed her home BP medications. @ 1030 patient threw up and compazine was given. She had a jello prior to throwing up which she thinks might have caused it. Shes tolerating ice chips well. Dr. Benavides paged to make aware of emesis, awaiting call back.
[2020-10-14 20:55] VITALS: BP 103/71
--- NOTE | 2020-10-15 00:25 | NUR ---
ASSESSMNENT COMPLETED. PT OBSERVED IN ROOM TALKING ON THE PHONE. DENIES PAIN. NO NAUSEA OR VOMITITNG. TOLERATING CLR LIQUIDS. BLOOD SUGAR OF 182,REFUSES INSULIN, WILL BE NPO AFTER MIDNOC FOR GASTRIC EMPTYING STUDY IN THE AM. AFEBRILE. NO FURTHER CONCERNS.
[2020-10-15 03:05] VITALS: BP 107/58
[2020-10-15 07:40] VITALS: BP 107/70
--- NOTE | 2020-10-15 12:22 | NUR ---
SW reviewed chart and spoke with attending physician. Pt to have gastric emptying study per GI. Pt may be ready to discharge home after study. No discharge needs identified at this time. SW is available to assist should needs arise.
[2020-10-15 15:39] VITALS: BP 107/70
== END 2020-10-15 17:15 | disposition home or self-care (01) | DRG 897 ==
LOC: ER 15:07 → EROBS 17:59 → 4S 17:59
PROVIDERS: Emergency Medicine; ADMIT Hospitalist; ATTEND Hospitalist
DX: F12.929 Cannabis use, unspecified with intoxication, unspecified (principal); Z20.822 Contact with and (suspected) exposure to COVID-19; I10 Essential (primary) hypertension; I48.91 Unspecified atrial fibrillation; E11.65 Type 2 diabetes mellitus with hyperglycemia; K21.9 Gastro-esophageal reflux disease without esophagitis; I16.0 Hypertensive urgency; K76.0 Fatty (change of) liver, not elsewhere classified; Z86.711 Personal history of pulmonary embolism; Z86.718 Personal history of other venous thrombosis and embolism; Z79.899 Other long term (current) drug therapy
CPT/HCPCS: 10195

== ENCOUNTER 2021-02-12 05:30 | Emergency (ER) | payer BC, OTHER ==
[~2021-02-12] VITALS: Ht 170.2 cm; Wt 125.8 kg
[2021-02-12 07:48] LABS: URINE BILIRUBIN NEGATIVE (Negative); URINE BLOOD NEGATIVE (Negative); URINE CLARITY CLEAR; URINE COLOR YELLOW; URINE GLUCOSE-RANDOM* 3+ (Negative); URINE KETONES NEGATIVE (Negative); URINE LEUKOCYTES-REFLEX NEGATIVE (Negative); URINE NITRITE-REFLEX NEGATIVE (Negative); URINE PROTEIN (DIPSTICK) NEGATIVE (Negative); URINE UROBILINOGEN 0.2 E.U./dl (0.2-1.0)
[2021-02-12 07:55] LABS: AMP/METHAMP Negative (Negative); BARBITURATES Negative (Negative); BENZODIAZEPINES Negative (Negative); COCAINE Negative (Negative); METHADONE Negative (Negative); OPIATES Negative (Negative); PCP Negative (Negative)
[2021-02-12 08:24] LABS: ABSOLUTE NEUTROPHILS 5.5 thou/uL (1.4-8.2); BASOPHILS 0.9 % (0.0-2.0); EOSINOPHILS 0.9 % (0.0-3.0); HEMATOCRIT 40.6 % (37.0-47.0); HEMOGLOBIN 13.6 gm/dL (12.0-15.0); LYMPHOCYTES 15.3 % (24.0-44.0); MCH 31.3 pg (26.0-34.0); MCHC 33.6 g/dL (28.0-37.0); MCV 93.3 fL (80.0-100.0); MONOCYTES 5.6 % (1.0-8.0); PLATELET COUNT 343 thou/uL (150-400); POLYS 77.3 % (36.0-66.0); RBC 4.35 mil/uL (4.20-5.00); RDW 13.4 % (10.5-14.5); WBC 7.1 thou/uL (4.0-11.0)
[2021-02-12 08:32] LABS: CALCIUM 9.2 mg/dL (8.5-10.1); CREATININE 0.9 mg/dL (0.6-1.0); POTASSIUM 3.8 mmol/L (3.5-5.1)
[2021-02-12 08:38] LABS: ALBUMIN 3.6 g/dL (3.4-5.0); DIRECT BILIRUBIN 0.1 mg/dL (<0.1-0.2); TOTAL BILIRUBIN 0.5 mg/dL (0.2-1.0); TOTAL PROTEIN 7.4 g/dL (6.4-8.2)
[2021-02-12 10:45] VITALS: BP 130/72
== END 2021-02-12 10:46 | disposition home or self-care (01) ==
LOC: ER 05:30
PROVIDERS: Student in an Organized Health Care Education/Training Program
DX: R56.9 Unspecified convulsions (principal); Z20.822 Contact with and (suspected) exposure to COVID-19; K31.84 Gastroparesis; K21.9 Gastro-esophageal reflux disease without esophagitis; I10 Essential (primary) hypertension; E11.9 Type 2 diabetes mellitus without complications; F12.90 Cannabis use, unspecified, uncomplicated; Z79.891 Long term (current) use of opiate analgesic; Z79.899 Other long term (current) drug therapy